=== PATIENT | male | born 1960 | race Caucasian/White ===

== ENCOUNTER 2021-06-01 00:21 | Day surgery (SDC) | payer OTHER, SELFPAY ==
[2021-05-16 13:00] VITALS: BMI 33.4
[2021-06-01 07:23] VITALS: BP 151/90; PULSE 77; RESP 18; TEMP 36.1; O2SAT 100
[2021-06-01] MEDS: LACTATED RINGERS 1,000 ML 150 ML IV CONT (07:26)
--- NOTE | 2021-06-01 07:40 | P.PNAN_ITS ---
Anes - Initial Pre Proc Eval Procedure: Operation Date: 06/01/21 08:30 Proposed Procedures p Screening Colonoscopy - Brett Mancuso MD Date/Time: 06/01/21 07:40 Surgeon: Brett Mancuso MD Pre Op Diagnosis: hx of colon polyps Patient Data Age: 60 Gender: M Height: 1.75 m Weight: 99.2 kg Last Vital Signs Temp 36.1 C L 06/01/21 07:23 Pulse 77 06/01/21 07:23 Resp 18 06/01/21 07:23 BP 151/90 H 06/01/21 07:23 Pulse Ox 100 06/01/21 07:23 Allergies Allergy/AdvReac Type Severity Reaction Status Date / Time No Known Allergies Allergy Verified 06/01/21 07:22 Home Medications Medication Instructions Recorded Confirmed Type benazepril 10 mg tablet 10 mg PO DAILY #90 tablet 03/24/20 05/16/21 Rx pravastatin 20 mg tablet 20 mg PO DAILY #90 tablet 03/24/20 05/16/21 Rx celecoxib 200 mg capsule 200 mg PO DAILY #90 cap 04/27/20 05/16/21 Rx amlodipine 10 mg tablet 10 mg PO DAILY #90 tablet 09/14/20 05/16/21 Rx famotidine 20 mg PO BID 05/16/21 05/16/21 History Patient hx anesthesia problems: none Family hx anesthesia problems: none Results Review: All pre-operative results and documents have been reviewed as part of the pre-operative evaluation. [facility] Past Medical History Medical History (Updated 06/01/21 @ 07:41 by Kyle Benavides MD) Hyperlipidemia Hypertension Obesity Personal history of colonic polyps Family History Family History Father Diabetes mellitus Sibling Family history of obesity Family history of multiple sclerosis Patient's sister is in good health Mother Cerebrovascular accident, Onset Age: 73 Other Family history of alcoholism Family history of transient ischemic attacks Social History Social History Smoking status: Former smoker Tobacco type: cigarettes Second hand tobacco smoke exposure: No Smoking end date: 08/20/82 Alcohol intake: current Drinks per week: 1 Substance use: never Substance use type: does not use Living arrangements: with family Spiritual care concerns: No Anes - Eval Final PreProcedure Day of Procedure 06/01/21 07:40 Patient weight: obese Heart: regular rate and rhythm Lungs: clear to auscultation and normal air movement Airway: Mallampati scale class II Neurological: alert and oriented Last oral intake: >/= 8 hours ASA classification: III Emergent: no Anesthetic plan: proceed Anesthesia type and monitoring: general GIVS Results Review: All pre-operative results and documents have been reviewed as part of the pre-operative evaluation. Informed Consent: The patient's anesthetic plan and its attendant risks and benefits were discussed with the patient/family/POA. Questions were solicited and answers provided to the satisfaction of the patient/family/POA.
--- NOTE | 2021-06-01 08:24 | PM.HPGS ---
History of Present Illness History of Present Illness Consent: Risks, benefits, and alternatives have been discussed and questions answered. Patient agrees to proceed with procedure. Chief complaint: hx of colon polyps Narrative: Deion Wayne is a 60 year old male here for screening colonoscopy, last one 2009 Review of Systems Constitutional: Constitutional: Denies headache(s) and Denies weakness Eyes: Eyes: Denies blurry vision ENT: Reports Normal hearing present, Denies headache(s) and Denies neck pain Cardiovascular: Cardiovascular: Denies chest pain and Denies dyspnea Respiratory: Respiratory: Denies dyspnea Gastrointestinal: Gastrointestinal: Reports no additional gastrointestinal complaints Genitourinary: Genitourinary: Denies dysuria Musculoskeletal: Musculoskeletal: Denies neck pain Integumentary/Breasts: Skin/Breast: Denies dry skin Neurologic: Reports Normal hearing present, Denies headache(s) and Denies weakness Psychiatric: Psychiatric: Denies anxiety Endocrine: Endocrine: Denies change in body appearance Hematologic/Lymphatic: Hematologic/Lymphatic: Denies easy bleeding Allergic/Immunologic: Allergic/Immunologic: Denies urticaria PMFSH Past Medical History Medical History (Updated 06/01/21 @ 08:24 by Brett Mancuso MD) Colon cancer screening Hyperlipidemia Hypertension Obesity Personal history of colonic polyps Family History Family History Father Diabetes mellitus Sibling Family history of obesity Family history of multiple sclerosis Patient's sister is in good health Mother Cerebrovascular accident, Onset Age: 73 Other Family history of alcoholism Family history of transient ischemic attacks Social History Social History Smoking status: Former smoker Tobacco type: cigarettes Second hand tobacco smoke exposure: No Smoking end date: 08/20/82 Alcohol intake: current Drinks per week: 1 Substance use: never Substance use type: does not use Living arrangements: with family Spiritual care concerns: No Meds Home Medications and Allergies Home Medications Medication Instructions Recorded Confirmed Type benazepril 10 mg tablet 10 mg PO DAILY #90 tablet 03/24/20 05/16/21 Rx pravastatin 20 mg tablet 20 mg PO DAILY #90 tablet 03/24/20 05/16/21 Rx celecoxib 200 mg capsule 200 mg PO DAILY #90 cap 04/27/20 05/16/21 Rx amlodipine 10 mg tablet 10 mg PO DAILY #90 tablet 09/14/20 05/16/21 Rx famotidine 20 mg PO BID 05/16/21 05/16/21 History Allergies Allergy/AdvReac Type Severity Reaction Status Date / Time No Known Allergies Allergy Verified 06/01/21 07:22 Vital Signs Vital Signs - 24 hr 06/01/21 07:23 Temperature 97.0 F L Pulse Rate 77 Respiratory Rate 18 Blood Pressure 151/90 H Pulse Oximetry 100 Exam Const: General: comfortable and no acute distress HENMT: General nose exam: Normal nares present Eyes: General: appearance normal, both eyes and all related structures Neck: Neck: no JVD Resp: Auscultation: clear to auscultation bilaterally Cardio: Rate: regular rate Rhythm: regular rhythm GI: Inspection: non-distended GI Palp: Yes Soft to palpation Skin: General skin exam: normal color Neuro: General: gait normal Speech: normal speech Extrem: General: normal to inspection Psych: Mental Status: mental status grossly normal Assessment and Plan Assessment and plan (1) Colon cancer screening: Code(s): Z12.11 - Encounter for screening for malignant neoplasm of colon Status: Acute Assessment and Plan: colonoscopy
[2021-06-01 08:46] VITALS: BP 113/78; PULSE 77; RESP 23; O2SAT 98
[2021-06-01 08:56] VITALS: BP 131/86; PULSE 69; RESP 21; O2SAT 99
[2021-06-01 09:06] VITALS: BP 146/90; PULSE 67; RESP 19; O2SAT 99
== END 2021-06-01 09:17 | disposition home or self-care (01) ==
PROVIDERS: PCP Internal Medicine; Visit Provider Internal Medicine Gastroenterology
PROC: 0DJD8ZZ Inspection of Lower Intestinal Tract, Via Natural or Artificial Opening Endoscopic (ICD-10-PCS; CPT 45378; principal; 2021-06-01 08:30)
DX: Z12.11 Encounter for screening for malignant neoplasm of colon (principal); K63.5 Polyp of colon; K57.30 Diverticulosis of large intestine without perforation or abscess without bleeding; K64.8 Other hemorrhoids; I10 Essential (primary) hypertension; E78.5 Hyperlipidemia, unspecified; E66.9 Obesity, unspecified; Z68.32 Body mass index [BMI] 32.0-32.9, adult; Z87.891 Personal history of nicotine dependence
CPT/HCPCS: 45385; 88305; J2704; J7120